=== PATIENT | male | born 1955 | race Caucasian/White ===

== ENCOUNTER → 2021-03-09 | Outpatient (CLI) | payer MEDICARE | LOC: COL.RAD 09:57 | DX: I77.1 Stricture of artery (principal); J43.9 Emphysema, unspecified | CPT/HCPCS: Q9967 ==

== ENCOUNTER → 2021-04-20 | Outpatient (CLI) | payer MEDICARE ==
[~2021-04-20] VITALS: Ht 177.8 cm; Wt 74.0 kg
[~2021-04-20] MED LIST: ASPIRIN 81M81 MG/TA2 PO; CEPHALEXIN500 M1 PO; CRESTOR40 MG PO; PLAVIX 75MG TAB75 MG PO; TOPROL XL 25MG25 MG PO; TRELEGY ELLIPT1 EACH IH; TYLENOL W/COD1 UDTAB PO
[2021-04-20 08:53] VITALS: BP 111/77; PULSE 67; TEMP 98.1
[2021-04-20 09:45] VITALS: BP 121/76; PULSE 63
== END ==
LOC: COL.RAD 08:29
DX: E04.1 Nontoxic single thyroid nodule (principal)
CPT/HCPCS: 32108